=== PATIENT | female | born 1980 | race Caucasian/White ===

== ENCOUNTER 2016-08-07 17:10 | Inpatient (IN) | payer BC ==
[2016-08-07 18:08] LABS: URINE APPEARANCE SLCLOUDY; URINE BILIRUBIN NEGATIVE (NEGATIVE); URINE BLOOD NEGATIVE (NEGATIVE); URINE COLOR LTYELLOW; URINE GLUCOSE (UA) NEGATIVE (NEGATIVE); URINE KETONE NEGATIVE (NEGATIVE); URINE NITRITE NEGATIVE (NEGATIVE); URINE PROTEIN NEGATIVE (NEGATIVE); URINE UROBILINOGEN NEGATIVE E.U./dl (0.2-1.0)
[2016-08-07 18:11] LABS: URINE LEUK ESTERASE 3+ (NEGATIVE)
[2016-08-07 18:13] LABS: URINE BACTERIA FEW /hpf (NONE SEEN); URINE HYALINE CAST 1 /lpf; URINE MUCUS RARE; URINE RBC 7 /hpf (0-3); URINE WBC 62 /hpf (3-5)
[2016-08-07 21:12] LABS: BASOPHIL 0.4 % (0-2.0); EOSINOPHIL 0.7 % (0-4.5); MCHC 33.2 g/dl (32.0-36.0); MEAN CELL VOLUME 87.5 fl (80-96); NEUTROPHILS 72.7 % (42.8-82.8); PLATELET COUNT 197 K/MM3 (134-434); RDW 13.2 % (11.6-15.6); WHITE BLOOD COUNT 9.3 K/mm3 (4.0-10.0)
[2016-08-07 21:36] LABS: ALBUMIN 3.1 g/dl (3.4-5.0); ANION GAP 15 (8-16); BILIRUBIN,TOTAL 0.2 mg/dL (0.2-1.0); CALCIUM 8.3 mg/dL (8.5-10.1); CO2 22 mmol/L (21-32); CREATININE 0.6 mg/dL (0.55-1.02); GLUCOSE,RANDOM 94 mg/dL (74-106); SGOT/AST 17 U/L (15-37); SGPT/ALT 35 U/L (12-78)
[2016-08-07 21:37] LABS: ALK PHOS 37 U/L (45-117)
[2016-08-07] MEDS: SODIUM CHLORIDE 1,000 ML IV SCH (21:45)
[2016-08-07] MEDS ORDERED: ACETAMINOPHEN 325 MG TABLET (FP) PO PRN (22:33)
[2016-08-07 22:35] VITALS: BMI 23.5
[2016-08-07] MEDS ORDERED: cefTRIAXone 1 GM/50 ML BAG (PRE-DOCKED) IVPB SCH (22:45)
[2016-08-08] MEDS: SODIUM CHLORIDE 1,000 ML IV SCH (05:45)
[2016-08-08 09:53] VITALS: BP 93/48; PULSE 71; TEMP 98.1
--- NOTE | 2016-08-08 12:37 | HP ---
Past Medical History - Primary Care Physician PCP:: Tk Goncalves - Admission Chief Complaint: 36 yo P2032 with at EGA 20w3d admitted with c/o severe left back and flank pain. History of Present Illness: Patient described left back and flank pain x 2 days that became much worse. The pain started as constant but then became colicky. The patient denies fever, chills, nausea, vomiting, hematuria. She had a prior h/o IUFD at 20wks. 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: Alzheimer's, CVA, Dementia, Migraine, Multiple Sclerosis, Peripheral Neuropathy, Parkinson's, Seizure, Syncope, TIA, Vertigo, Other Cardiovascular: No: AFIB, Aneurysm, Aortic Insufficiency, Aortic Stenosis, CAD, CHF, Deep Vein Thrombosis, HTN, Hyperlipdemia, [place], Mitral Insufficiency, Mitral Stenosis, Murmur, Pulmonary Hypertension, Other Pulmonary: No: Asthma, Bronchitis, Cancer, COPD, O2 Dependent, Pneumonia, Previously Intubated, Pulmonary Embolus, Pulmonary Fibrosis, Sleep Apnea, Other Gastrointestinal: No: Ascites, Cancer, Constipation, Crohn's Disease, Diverticulitis, Diverticulosis, Esophageal Varices, Gastritis, GERD, GI Bleed, Hemorrhoids, Hiatal Hernia, Inflamatory Bowel Disease, Irritable Bowel Disease, Pancreatitis, Peptic Ulcer Disease, Ulcerative Colitis, Other Hepatobiliary: No: Cirrhosis, Cholelithiasis, Cholecystitis, Choledocholithiasis , Hepatitis A, Hepatitis B, Hepatitis C, Other Renal/: No: Renal Failure, Renal Inusuff, BPH, Cancer, Hematuria, Hemodialysis , Neurogenic Bladder, Renal Calculi, UTI, Other ...: 6 ...Para: 2 ( x 2) ...Term: 2 ...: 0 ...Spon : 3 (SAB x 2 in 1st trimester, D&E x 1 for IUFD at 20-21wks.) ...Induced : 0 ...Multiple Gestation: 0 ... Weeks Gestation by Dates: 20.3 ...EDC by Sono: 12/23/16 Heme/Onc: No: Anemia, B12 Deficiency, Bleeding Disorder, Cancer, Current Chemotherapy, Current Radiation Therapy, Hemochromatosis, Hypercoaguable State, Myeloproliferative Synd, Sickle Cell Disease, Sickle Cell Trait, Thrombocytopenia, Other Infectious Disease: No: AIDS, C-Diff, Herpes Zoster, HIV, MRSA, STD's, Tuberculosis, VREF, Other Psych: No: Addictions, Anxiety, Bipolar, Depression, Panic, Psychosis, Schizophrenia, Other Musculoskeletal: No: Bursitis, Chronic low back pain, Hemiparesis, Hemiplegia, Osteoarthritis, Paraplegia, Other Rheumatology: No: Fibromyalgia, Gout, Lupus, Rheumatoid Arthritis, Sarcoidosis, Vasculitis, Other ENT: No: Allergic Rhinitis, Sinusitis, Other Endocrine: No: London's Disease, Zoar's Disease, Diabetes Insipidus, Diabetes Mellitus, Hyperparathyroidism, Hyperthyroidism, Hypothyroidism, Osteopenia, SIADH, Other Dermatology: No: Basal Cell, Cellulitis, Eczema, Melanoma, Psoriasis, Squamous Cell, Other - Past Surgical History Hx Myomectomy: No Hx Transabdominal Cerclage: No Additional Surgical History: D&E x 1 - Smoking History Smoking history: Never smoked Have you smoked in the past 12 months: No - Alcohol/Substance Use Hx Alcohol Use: No History of Substance Use: reports: None - Social History Usual Living Arrangement: Yes: With Child ADL: Independent History of Recent Travel: No Home Medications - Allergies Allergies/Adverse Reactions: Allergies Allergy/AdvReac Type Severity Reaction Status Date / Time No Known Drug Allergies Allergy Verified 08/07/16 20:39 - Home Medications Home Medications: Ambulatory Orders Vit/Iron Fumarate/FA [ Tablet] 1 tab PO DAILY 08/07/16 Review of Systems Findings/Remarks: Well appearing. Pt states that her symptoms have significantly improved since admission. - Review of Systems Constitutional: reports: No Symptoms, Other (Patient was in a lot of pain on admission; now resolved.) Eyes: reports: No Symptoms HENT: reports: No Symptoms Neck: reports: No Symptoms Cardiovascular: reports: No Symptoms Respiratory: reports: No Symptoms Gastrointestinal: reports: No Symptoms Genitourinary: reports: Dysuria, Flank Pain, Other (symptoms now are resolved) Breasts: reports: No Symptoms Reported Musculoskeletal: reports: No Symptoms Integumentary: reports: No Symptoms Neurological: reports: No Symptoms Endocrine: reports: No Symptoms Hematology/Lymphatic: reports: No Symptoms Psychiatric: reports: No Symptoms Pain Intensity: 9 (now resolved) Physical Exam - Maternity Vital Signs: Vital Signs Temperature 98.1 F 08/08/16 09:51 Pulse Rate 71 08/08/16 09:51 Respiratory Rate 20 08/08/16 09:51 Blood Pressure 93/48 08/08/16 09:51 O2 Sat by Pulse Oximetry (%) Constitutional: Yes: Well Nourished, No Distress, Calm Eyes: Yes: WNL, Conjunctiva Clear HENT: Yes: WNL, Atraumatic, Normocephalic Neck: Yes: WNL, Supple, Trachea Midline Cardiovascular: Yes: WNL, Regular Rate and Rhythm Lungs: Clear to auscultation, Normal air movement Breast(s): Yes: WNL - Abdominal Exam/OB Fundal Height: 20 Number of Fetuses: Single Presentation: Vertex Contractions: No Heart Rate (range): 120 - Vaginal Exam/OB Vaginal Bleediing: No Speculum Exam: No Dilatation (cm): 0 Effacement (%): 0 Amniotic Membrane Status: Intact - Physical Exam Musculoskeletal: Yes: WNL Extremities: Yes: WNL Edema: No Integumentary: Yes: WNL Deep Tendon Reflex Grade: Normal +2 ...Motor Strength: WNL Psychiatric: Yes: WNL, Alert, Oriented - Labs Lab Results: CBC, BMP 08/07/16 21:00 08/07/16 21:00 Hemorrhage Risk Assessment - Risk Factors Medium Risk Factors: Yes: None High Risk Factors: Yes: None Risk Score: 1 Risk Level: Medium Risk Imaging - Results Ultrasound: Image Reviewed Assessment/Plan 39 yo P2 with at EGA 20w3d admitted with severe left CVAT and leukocytes in UA. The patient was also noted to have left renal stones. The clinical picture c/w nephrolithiasis with/without pyelonephritis. The patient was admitted yetserday and given IV abx. She is now asymptomatic. Plan to discharge to home. PO hydration encouraged. Plan to check the urine cx. precautions reviewed. Exam - Exam Vital Signs: Vital Signs (72 hours) 08/07/16 08/07/16 08/07/16 17:58 19:10 22:40 Temperature 97.9 F 98.0 F 97.6 F Pulse Rate 62 58 L Pulse Rate [ 81 Left] Respiratory 18 17 201 H Rate Blood Pressure 108/54 104/57 Blood Pressure 121/58 [Left] 08/08/16 08/08/16 08/08/16 02:05 05:33 09:51 Temperature 97.8 F 98.0 F 98.1 F Pulse Rate 64 70 71 Pulse Rate [ Left] Respiratory 20 20 20 Rate Blood Pressure 90/44 90/46 93/48 Blood Pressure [Left] Physical Exam - Physical Exam Gastrointestinal/Abdominal: Yes: Normal Bowel Sounds, Soft Back Exam: Yes: Normal Inspection (LEFT CVAT resolved since admission)
== END 2016-08-08 13:20 | disposition home or self-care (01) | DRG 781 ==
LOC: JDEL 17:10 → JLDR 20:30 → J3W 22:30
PROVIDERS: ADMIT Obstetrics & Gynecology; ATTEND Obstetrics & Gynecology
DX: O26.892 Other specified pregnancy related conditions, second trimester (principal); N20.0 Calculus of kidney; Z3A.20 20 weeks gestation of pregnancy
CPT/HCPCS: 36415; 76775-TC; 76815-TC; 76817-TC; 80053; 81003; 81015; 85025; 87086

== ENCOUNTER 2016-11-16 08:00 | Inpatient (IN) | payer BC ==
[2016-11-16] MEDS ORDERED: AMPICILLIN - 2 GM in SODIUM CHLORIDE 100 ML IVPB ONE (09:00)
[2016-11-16] MEDS ORDERED: BETAMET ACET/BETAMET NA PH 30 MG/5 ML VIAL IM SCH (09:00)
[2016-11-16 09:02] LABS: BASOPHIL 0.7 % (0-2.0); EOSINOPHIL 0.9 % (0-4.5); MCH 29.7 pg (25.7-33.7); MCHC 34.4 g/dl (32.0-36.0); MEAN CELL VOLUME 86.3 fl (80-96); MEAN PLT VOLUME 8.3 fl (7.5-11.1); NEUTROPHILS 79.3 % (42.8-82.8); PLATELET COUNT 166 K/MM3 (134-434); RDW 12.5 % (11.6-15.6); WHITE BLOOD COUNT 9.3 K/mm3 (4.0-10.0)
[2016-11-16 09:21] LABS: CALCIUM 8.2 mg/dL (8.5-10.1); CREATININE 0.6 mg/dL (0.55-1.02)
[2016-11-16 09:28] LABS: INR 0.93 (0.82-1.09); PROTHROMBIN TIME (PATIENT) 10.2 SEC (9.98-11.88)
[2016-11-16 09:31] LABS: ACTIVATED PTT 27.8 SECONDS (26.9-34.4)
[2016-11-16] MEDS ORDERED: ELECTROLYTE-148 SOLN 1,000 ML IV SCH (10:00)
--- NOTE | 2016-11-16 10:07 | HP ---
Past Medical History - Primary Care Physician PCP:: Tk Goncalves - Admission Chief Complaint: 36 yo P2122 with at EGA 34w5d and PPROM. 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: Alzheimer's, CVA, Dementia, Migraine, Multiple Sclerosis, Peripheral Neuropathy, Parkinson's, Seizure, Syncope, TIA, Vertigo, Other Cardiovascular: No: AFIB, Aneurysm, Aortic Insufficiency, Aortic Stenosis, CAD, CHF, Deep Vein Thrombosis, HTN, Hyperlipdemia, [place], Mitral Insufficiency, Mitral Stenosis, Murmur, Pulmonary Hypertension, Other Pulmonary: No: Asthma, Bronchitis, Cancer, COPD, O2 Dependent, Pneumonia, Previously Intubated, Pulmonary Embolus, Pulmonary Fibrosis, Sleep Apnea, Other Gastrointestinal: No: Ascites, Cancer, Constipation, Crohn's Disease, Diverticulitis, Diverticulosis, Esophageal Varices, Gastritis, GERD, GI Bleed, Hemorrhoids, Hiatal Hernia, Inflamatory Bowel Disease, Irritable Bowel Disease, Pancreatitis, Peptic Ulcer Disease, Ulcerative Colitis, Other Hepatobiliary: No: Cirrhosis, Cholelithiasis, Cholecystitis, Choledocholithiasis , Hepatitis A, Hepatitis B, Hepatitis C, Other Renal/: No: Renal Failure, Renal Inusuff, BPH, Cancer, Hematuria, Hemodialysis , Neurogenic Bladder, Renal Calculi, UTI, Other Reproductive: No: Ectopic , Endometriosis, Fibroids, PID, Polycystic Ovary Syndrome, Postmenopausal, Other ...: 6 ...Para: 2 ...Term: 2 ...: 1 ...Spon : 2 ... Weeks Gestation by Dates: 34.5 ...EDC by Sono: 12/23/16 Heme/Onc: No: Anemia, B12 Deficiency, Bleeding Disorder, Cancer, Current Chemotherapy, Current Radiation Therapy, Hemochromatosis, Hypercoaguable State, Myeloproliferative Synd, Sickle Cell Disease, Sickle Cell Trait, Thrombocytopenia, Other Infectious Disease: No: AIDS, C-Diff, Herpes Zoster, HIV, MRSA, STD's, Tuberculosis, VREF, Other Psych: No: Addictions, Anxiety, Bipolar, Depression, Panic, Psychosis, Schizophrenia, Other Musculoskeletal: No: Bursitis, Chronic low back pain, Hemiparesis, Hemiplegia, Osteoarthritis, Paraplegia, Other Rheumatology: No: Fibromyalgia, Gout, Lupus, Rheumatoid Arthritis, Sarcoidosis, Vasculitis, Other ENT: No: Allergic Rhinitis, Sinusitis, Other Endocrine: No: [place]'s Disease, Jemima's Disease, Diabetes Insipidus, Diabetes Mellitus, Hyperparathyroidism, Hyperthyroidism, Hypothyroidism, Osteopenia, SIADH, Other Dermatology: No: Basal Cell, Cellulitis, Eczema, Melanoma, Psoriasis, Squamous Cell, Other - Past Surgical History Hx Myomectomy: No Hx Transabdominal Cerclage: No Additional Surgical History: Abdominoplasty, breast augmentation - Smoking History Smoking history: Never smoked Have you smoked in the past 12 months: No - Alcohol/Substance Use Hx Alcohol Use: No History of Substance Use: reports: None - Social History Usual Living Arrangement: Yes: With Significant Other, With Child ADL: Independent Occupation: RN History of Recent Travel: No Home Medications - Allergies Allergies/Adverse Reactions: Allergies Allergy/AdvReac Type Severity Reaction Status Date / Time No Known Drug Allergies Allergy Verified 08/07/16 20:39 - Home Medications Home Medications: Ambulatory Orders Vit/Iron Fumarate/FA [ Tablet] 1 tab PO DAILY 08/07/16 Family Disease History - Family Disease History Family History: Unremarkable Review of Systems - Review of Systems Constitutional: reports: No Symptoms Eyes: reports: No Symptoms HENT: reports: No Symptoms Neck: reports: No Symptoms Cardiovascular: reports: No Symptoms Respiratory: reports: No Symptoms Gastrointestinal: reports: No Symptoms Genitourinary: reports: Other (leaking clear fluids) Breasts: reports: No Symptoms Reported Musculoskeletal: reports: No Symptoms Integumentary: reports: No Symptoms Neurological: reports: No Symptoms Endocrine: reports: No Symptoms Hematology/Lymphatic: reports: No Symptoms Psychiatric: reports: No Symptoms Pain Intensity: 0 Physical Exam - Maternity Vital Signs: Vital Signs Temperature 98.1 F 11/16/16 09:24 Pulse Rate 72 11/16/16 09:24 Respiratory Rate 20 11/16/16 09:24 Blood Pressure 103/61 11/16/16 09:24 O2 Sat by Pulse Oximetry (%) Constitutional: Yes: Well Nourished, No Distress, Calm Eyes: Yes: WNL, Conjunctiva Clear HENT: Yes: WNL, Atraumatic, Normocephalic Neck: Yes: WNL, Supple, Trachea Midline Cardiovascular: Yes: WNL, Regular Rate and Rhythm Lungs: Clear to auscultation, Normal air movement Breast(s): Yes: WNL - Abdominal Exam/OB Fundal Height: 34 Number of Fetuses: Single Presentation: Vertex Contractions: Yes Regularity: Irregular Intensity: Mild Monitor Mode: External Heart Rate (range): 130 Heart Rate Location: Midline Category: I Accelerations: Non-Uniform Decelerations: None - Vaginal Exam/OB Vaginal Bleediing: No Speculum Exam: No Amniotic Membrane Status: Leaking Nitrazine Test: Positive Amniotic Fluid: Yes: Clear Presentation: Vertex/Position Station: -3 - Physical Exam Musculoskeletal: Yes: WNL Extremities: Yes: WNL Edema: No Integumentary: Yes: WNL, Tattoos Deep Tendon Reflex Grade: Normal +2 Psychiatric: Yes: WNL, Alert, Oriented - Labs Lab Results: CBC, BMP 11/16/16 08:35 11/16/16 08:35 Hemorrhage Risk Assessment - Risk Factors Medium Risk Factors: Yes: None High Risk Factors: Yes: None Risk Score: 1 Risk Level: Medium Risk Imaging - Results Ultrasound: Report Reviewed, Other (vtx confirmed at bedside) Assessment/Plan 36 yo P2122 with at EGA 34w5d and PPROM. Fetus with category I tracing. Pt is not in labor. Plan ti give steroids and Ampicillin. Plan expectant mgt, anticipate spont labor.
[2016-11-16 10:11] VITALS: BMI 24.2
[2016-11-16] MEDS: AMPICILLIN - 1 GM in SODIUM CHLORIDE 100 ML IVPB SCH ×3 (13:00→21:00)
[2016-11-16] MEDS: DEXTROSE 5%-LACTATED RINGERS 1,000 ML IV SCH (17:00)
--- NOTE | 2016-11-16 20:27 | PN ---
Ante-Partal Exam - Subjective Subjective: No complaints Vital Signs: Vital Signs Temperature 98.2 F 11/16/16 18:00 Pulse Rate 82 11/16/16 20:00 Respiratory Rate 20 11/16/16 20:00 Blood Pressure 91/56 11/16/16 20:00 O2 Sat by Pulse Oximetry (%) Bleeding: No Headache: No Visual changes: No Right upper quadrant pain: No Pain (scale 1-10): 0 - Contractions Contractions: Yes Regularity: Irregular Intensity: Unaware Monitor Mode: External - Exam during Labor Heart Rate: 130 Variability: Moderate Heart Rate Location: Midline Category: I Monitor Accelerations: Present Monitor Decelerations: None Amniotic Membrane Status: Leaking Presentation: Vertex - Intrapartum Hemorrhage Risk Medium Risk Factors: None High Risk Factors: None Risk Score: 0 Risk Level: Low Risk - Assessment/Plan Assessment/Plan: 36 yo P2 with PPROM at 34w5d not in labor. Fetus with Category I tracing. Plan to augment labor with oxytocin. No evidence of chorioamnionitis. Plan of care d/ w pt who agreed.
[2016-11-16] MEDS ORDERED: OXYTOCIN 15 UNITS/ LR 250 ML 250 ML IVPB SCH (20:30)
[2016-11-16] MEDS ORDERED: CITRIC ACID/SODIUM CITRATE 30 ML UNIT-DOSE CUP PO ONE (22:15)
[2016-11-17] MEDS: AMPICILLIN - 1 GM in SODIUM CHLORIDE 100 ML IVPB SCH ×3 (01:10→09:00)
[2016-11-17] MEDS ORDERED: PROMETHAZINE HCL 25 MG/1 ML VIAL IVPB ONE ×2 (01:15→06:00)
[2016-11-17] MEDS ORDERED: BUTORPHANOL TARTRATE 1 MG/ML VIAL IVPB ONE ×2 (01:15→06:00)
[2016-11-17] MEDS ORDERED: BETAMET ACET/BETAMET NA PH 30 MG/5 ML VIAL IM ONE (06:45)
--- NOTE | 2016-11-17 06:56 | PN ---
Ante-Partal Exam - Subjective Subjective: Pt c/o pain with contractions Vital Signs: Vital Signs Temperature 97.9 F 11/17/16 06:00 Pulse Rate 81 11/17/16 06:00 Respiratory Rate 20 11/17/16 06:00 Blood Pressure 92/63 11/17/16 06:00 O2 Sat by Pulse Oximetry (%) Bleeding: No Headache: No Visual changes: No Right upper quadrant pain: No Pain (scale 1-10): 7 - Contractions Contractions: Yes Regularity: Regular (3-5min) Intensity: Moderate Monitor Mode: External - Exam during Labor Heart Rate: 135 Variability: Moderate Heart Rate Location: Midline Category: II Monitor Accelerations: Present Monitor Decelerations: Variable (occasional) Exam: Vaginal Dilatation (cm): 3 Effacement (%): 90 Amniotic Membrane Status: Leaking Amniotic Fluid: Clear Presentation: Vertex Station: 0 Remarks: IUPC catheter inserted for AMNIOINFUSION to start - Intrapartum Hemorrhage Risk Medium Risk Factors: None High Risk Factors: None Risk Score: 0 Risk Level: Low Risk - Assessment/Plan Assessment/Plan: IUP at 34w5d and PPROM, undergoing labor induction. Pitocin at 1mU Fetus with Category II tracing with occasional variable decels. IUPC place and will start amnioinfusion. Labor is progressing in latent phase. No s/sx of chorio. Continue abx. Plan to monitor progress and status/tracing. Anticipate
[2016-11-17] MEDS ORDERED: FENTANYL/BUPIVACAINE/NS/PF - PCEA - 50 ML DISP.SYRIN EP SCH (09:45)
[2016-11-17] MEDS: OXYTOCIN 20 UNITS in 0.9% NS 1,000 ML IV SCH ×2 (10:15→20:04)
[2016-11-17 11:01] LABS: ARTERIAL BLD GAS O2 SATURATION 48.5 % (90-98.9); ARTERIAL BLOOD GAS BASE EXCESS -2.1 meq/l (-2-2); ARTERIAL BLOOD GAS HCO3 24.4 meq/L (22-26); ARTERIAL BLOOD GAS pH 7.31 (7.35-7.45)
[2016-11-17 11:03] LABS: ARTERIAL BLOOD GAS BASE EXCESS -2.3 meq/l (-2-2); ARTERIAL BLOOD GAS HCO3 22.8 meq/L (22-26); ARTERIAL BLOOD GAS pH 7.35 (7.35-7.45)
[2016-11-17 11:04] LABS: LPM/O2% 21%; PT. ON O2? NO; TYPE OF O2 ROOM AIR
[2016-11-17 11:05] LABS: ARTERIAL BLOOD GAS PO2 25.9 mmHg (80-100)
[2016-11-17 11:05] LABS: LPM/O2% 21%; PT. ON O2? NO; TYPE OF O2 ROOM AIR
[2016-11-17 11:06] LABS: ARTERIAL BLOOD GAS PO2 31.3 mmHg (80-100)
[2016-11-17] MEDS ORDERED: BISACODYL 10 MG SUPP.RECT RC PRN (16:51)
[2016-11-17] MEDS ORDERED: BENZOCAINE 28 GM HEMORRHOIDAL OINTMENT TP PRN (16:51)
[2016-11-17] MEDS ORDERED: BENZOCAINE 20% 57 GM BOTTLE TP PRN (16:51)
[2016-11-17] MEDS ORDERED: METHYLERGONOVINE MALEATE 0.2 MG/1 ML AMP IM PRN (16:51)
[2016-11-17] MEDS ORDERED: WITCH HAZEL 50% (TUCKS) 40 PAD/JAR PAD TP PRN (16:51)
[2016-11-17] MEDS ORDERED: ACETAMINOPHEN 325 MG TABLET (FP) PO PRN (16:51)
--- NOTE | 2016-11-17 16:57 | PN ---
Delivery - Delivery Vaginal Delivery: No Problems, Spontaneous Type of Anesthesia: Epidural Episiotomy/Laceration: None EBL (cc): 300 Delivery, Single - Stages of Labor Date 1st Stage Initiatied: 11/17/16 Time 1st Stage Initiated: 01:00 Date 2nd Stage Initiated: 11/17/16 Time 2nd Stage Initiated: 09:50 Date of Delivery: 11/17/16 Time of Delivery: 10:10 Time Placenta Delivered: 10:15 Placenta: Yes: Spontaneous, Normal Configuration - Condition of Infant Skilled Nursing Facilities Professional/Supervisor Shuttle Preparation Present: Yes Name: Devi Castro Gender: Female Weight: 2.296 kg Position: Left, OA Total Hours ROM (Hrs/Mins): 26/55 - 1 Minute Total Score: 9 5 Minutes Total Score: 9 - Feeding Plan Initial Plan: Exclusive throughout hospitalization Benefits of Exclusively reinforced: Yes
[2016-11-17] MEDS: DEXTROSE 5%-LACTATED RINGERS 1,000 ML IV SCH (20:04)
[2016-11-17] MEDS: IBUPROFEN 600 MG TABLET (FP) PO PRN (21:26)
[2016-11-18] MEDS: IBUPROFEN 600 MG TABLET (FP) PO PRN ×3 (05:36→21:10)
[2016-11-18 08:50] LABS: BASOPHIL 0.1 % (0-2.0); EOSINOPHIL 0.2 % (0-4.5); MCH 29.3 pg (25.7-33.7); MCHC 33.4 g/dl (32.0-36.0); MEAN CELL VOLUME 87.5 fl (80-96); NEUTROPHILS 83.4 % (42.8-82.8); PLATELET COUNT 179 K/MM3 (134-434); RDW 12.9 % (11.6-15.6); WHITE BLOOD COUNT 15.9 K/mm3 (4.0-10.0)
[2016-11-18] MEDS: PRENATAL VITAMINS W/ FOLIC ACID TABLET (FP) PO SCH (09:44)
[2016-11-18] MEDS ORDERED: DIPHTH,PERTUSS(ACELL),TET 0.5 ML DISP.SYRIN IM ONE (13:00)
[2016-11-18] MEDS ORDERED: SENNOSIDES/DOCUSATE COMBO (SENNA PLUS) TABLET (UD) PO PRN (22:00)
--- NOTE | 2016-11-19 05:29 | DS ---
Physical Exam-REFUSE DRIVER Vital Signs: Vital Signs Temperature 97.7 F 11/18/16 22:00 Pulse Rate 64 11/18/16 22:00 Respiratory Rate 18 11/18/16 22:00 Blood Pressure 107/62 11/18/16 22:00 O2 Sat by Pulse Oximetry (%) 100 11/17/16 09:50 Constitutional: Yes: Well Nourished, No Distress, Calm Eyes: Yes: WNL, Conjunctiva Clear, EOM Intact HENT: Yes: WNL, Atraumatic, Normocephalic Neck: Yes: WNL, Supple, Trachea Midline Cardiovascular: Yes: WNL, Regular Rate and Rhythm Respiratory: Yes: WNL, Regular, CTA Bilaterally Gastrointestinal: Yes: WNL ...Rectal Exam: Yes: WNL Renal/: Yes: WNL ....Post : Yes: Uterus firm, Uterus non-tender, Slight lochia rubra Breast(s): Yes: WNL Musculoskeletal: Yes: WNL Extremities: Yes: WNL Edema: No Integumentary: Yes: WNL Neurological: Yes: WNL, Alert, Oriented ...Motor Strength: WNL Psychiatric: Yes: WNL, Alert, Oriented Labs: CBC, BMP 11/18/16 07:05 11/16/16 08:35 Delivery - Delivery Vaginal Delivery: No Problems, Spontaneous Type of Anesthesia: Epidural Episiotomy/Laceration: None EBL (cc): 300 Delivery, Single - Stages of Labor Date 1st Stage Initiatied: 11/17/16 Time 1st Stage Initiated: 01:00 Date 2nd Stage Initiated: 11/17/16 Time 2nd Stage Initiated: 09:50 Date of Delivery: 11/17/16 Time of Delivery: 10:10 Time Placenta Delivered: 10:15 Placenta: Yes: Spontaneous, Normal Configuration - Condition of Tractor Technician/Sales Engineer Account Manager Present: Yes Name: Devi Castro Gender: Female Weight: 5 lb 1 oz Position: Left, OA Total Hours ROM (Hrs/Mins): 26/55 - 1 Minute Total Score: 9 5 Minutes Total Score: 9 - [place] Feeding Plan Initial Plan: Exclusive throughout hospitalization Benefits of Exclusively reinforced: Yes Discharge Summary Reason For Visit: LABOR prom Procedures: Principal: Condition: Good - Instructions Diet, Activity, Other Instructions: regular diet, follow up office 4 weeks Referrals: Tk Goncalves MD [Staff Physician] - Disposition: HOME - Home Medications Comprehensive Discharge Medication List: Ambulatory Orders Vit/Iron Fumarate/FA [ Tablet] 1 tab PO DAILY 08/07/16 Ibuprofen [Motrin -] 600 mg PO QID #28 tablet 11/18/16
[2016-11-19] MEDS: IBUPROFEN 600 MG TABLET (FP) PO PRN (07:55)
[2016-11-19] MEDS: PRENATAL VITAMINS W/ FOLIC ACID TABLET (FP) PO SCH (10:38)
[2016-11-19 11:05] VITALS: BP 114/74; PULSE 61; TEMP 98
--- NOTE | 2016-11-25 16:32 | PATH ---
Surgical Pathology Report Patient Name: MARIA L ARTHUR Med. Rec. #: [id number] /Age/Gender: 1980 (Age: 36) / F Account: [id number] Location: [facility] OBS/SR. STRATEGIC SOURCING MANAGER Taken: 11/17/2016 Received: 11/18/2016 Reported: 11/25/2016 Physicians: Tk Goncalves M.D. Specimen(s) Received PLACENTA Clinical History 34.6 weeks, , x3 (2 full-term, one 20 week miscarriage) Final Diagnosis PLACENTA, DELIVERY: FOCALLY DISRUPTED SMALL (<400 GM) THIRD TRIMESTER PLACENTA WITH MARKED ACUTE BASAL DECIDUITIS WITH FOCI OF NECROSIS, MODERATE PREVILLOUS, PERIVILLOUS, AND PRECHORIONIC FIBRIN DEPOSITION, THREE VESSEL UMBILICAL CORD, AND PLACENTAL MEMBRANES WITH EARLY ACUTE CHORIOAMNIONITIS AND FOCAL ACUTE INFLAMMATION OF CHORIONIC PLATE WITH FOCAL CHORIONIC VASCULITIS. Electronically Signed Marshall Bernstein M.D. Gross Description The specimen is received fresh, labeled "placenta" and is a 331 gram, 17.0 x 11.0 x 2.2 cm placenta with attached membranes and umbilical cord. The attached membranes are phan, translucent with focal opacities and insert marginally. The umbilical cord measures 27 cm in length and averages 1.2 cm in diameter. The cord inserts eccentrically, 2 cm to the nearest margin. No true knots or strictures are identified. Cut surface of the umbilical cord reveals 3 vessels. The surface is sousa-blue with fibrin deposition and appropriate caliber vessels. The maternal surface is red-brown with focal defects. Sectioning reveals red-brown, spongy parenchyma. No discrete lesions are identified. Paid Search Manager sections are submitted in three cassettes as follows: 1- membrane rolls and umbilical cord; 2-3- full thickness sections of placenta. /11/24/2016 [facility]11/24/2016
== END 2016-11-19 14:50 | disposition home or self-care (01) | DRG 775 ==
LOC: JDEL 08:00 → JLDR 08:30 → J3W 11-17 11:32
PROVIDERS: ADMIT Obstetrics & Gynecology; ATTEND Obstetrics & Gynecology
PROC: 10E0XZZ Delivery of Products of Conception, External Approach (ICD-10-PCS; principal; 2016-11-17)
PROC: 3E0334Z Introduction of Serum, Toxoid and Vaccine into Peripheral Vein, Percutaneous Approach (ICD-10-PCS; 2016-11-17)
DX: O60.14X0 Preterm labor third trimester with preterm delivery third trimester, not applicable or unspecified (principal); O09.523 Supervision of elderly multigravida, third trimester; O42.913 Preterm premature rupture of membranes, unspecified as to length of time between rupture and onset of labor, third trimester; Z3A.34 34 weeks gestation of pregnancy; O26.893 Other specified pregnancy related conditions, third trimester; Z67.91 Unspecified blood type, Rh negative; Z37.0 Single live birth
CPT/HCPCS: 36415; 36600; 59409; 80048; 82803; 85025; 85461; 85610; 85730; 86593; 86850; 86870; 86900; 86901; 86902; 86999; 88307-TC; 90715; 96372

== ENCOUNTER 2020-10-05 08:10 | Inpatient (IN) | payer OTHER ==
[2020-10-05] MEDS: DEXTROSE 5%-LACTATED RINGERS 1,000 ML IV SCH ×2 (08:45→16:20)
[2020-10-05 09:39] LABS: BASO % 0.6 % (0-2.0); EOS % 0.5 % (0-4.5); HEMATOCRIT 36.3 % (32.4-45.2); HEMOGLOBIN 12.4 GM/dL (10.7-15.3); LYMPH % 16.3 % (8-40); MCH 29.3 pg (25.7-33.7); MCHC 34.2 g/dl (32.0-36.0); MEAN CELL VOLUME 85.7 fl (80-96); MEAN PLT VOLUME 8.4 fl (7.5-11.1); MONO % 7.4 % (3.8-10.2); NEUT % 75.2 % (42.8-82.8); PLATELET COUNT 161 K/MM3 (134-434); RBC 4.24 M/mm3 (3.60-5.2); RDW 13.1 % (11.6-15.6); WHITE BLOOD COUNT 7.5 K/mm3 (4.0-10.0)
[2020-10-05 09:41] VITALS: BMI 28.8
[2020-10-05 09:52] LABS: INR 0.94 (0.83-1.09); PROTHROMBIN TIME (PATIENT) 11.6 SEC (9.7-13.0)
[2020-10-05 09:55] LABS: ACTIVATED PTT 25.4 SECONDS (25.2-36.5)
[2020-10-05 10:07] LABS: POTASSIUM 3.9 mmol/L (3.5-5.1)
[2020-10-05 10:08] LABS: CALCIUM 8.6 mg/dL (8.5-10.1)
[2020-10-05 10:12] LABS: CREATININE 0.6 mg/dL (0.55-1.3)
[2020-10-05] MEDS ORDERED: OXYTOCIN 30 UNITS in 0.9% NS 30 UNIT/500 ML INFUS.BAG IVPB ONE (11:17)
[2020-10-05] MEDS: OXYTOCIN 30 UNITS in 0.9% NS 30 UNIT/500 ML INFUS.BAG IVPB SCH (11:30)
[2020-10-05] MEDS ORDERED: ACETAMINOPHEN 325 MG TABLET (FP) ONE (17:51)
[2020-10-05] MEDS ORDERED: FENTANYL/BUPIVACAINE/NS/PF - PCEA - 50 ML DISP.SYRIN EP ONE ×2 (18:42→23:13)
[2020-10-05] MEDS ORDERED: PCA PUMP NR ONE (18:42)
[2020-10-05] MEDS: FENTANYL/BUPIVACAINE/NS/PF - PCEA - 50 ML DISP.SYRIN EP SCH (19:10)
[2020-10-05] MEDS ORDERED: NALOXONE HCL 0.4 MG/ML VIAL IVPUSH PRN (19:50)
[2020-10-05] MEDS ORDERED: ePHEDrine SULFATE 50 MG/1 ML AMPULE IVPUSH ONE (20:35)
[2020-10-06] MEDS ORDERED: BUPIVACAINE HCL/PF 0.25% (2.5MG/ML) 10 ML VIAL ONE (00:33)
[2020-10-06] MEDS ORDERED: ePHEDrine SULFATE 50 MG/1 ML AMPULE ONE (00:35)
[2020-10-06] MEDS ORDERED: SODIUM CHLORIDE 0.9% P/F 10 ML VIAL IJ ONE (00:35)
[2020-10-06] MEDS ORDERED: OXYTOCIN 20 UNITS in 0.9% NS 20 UNIT/1,000 ML INFUS.BAG IV ONE (01:11)
[2020-10-06] MEDS: IBUPROFEN 600 MG TABLET (FP) PO PRN ×4 (04:58→21:39)
[2020-10-06] MEDS: ACETAMINOPHEN 325 MG TABLET (FP) PO PRN ×3 (04:58→21:38)
[2020-10-06] MEDS ORDERED: BENZOCAINE 20% 57 GM BOTTLE TP PRN (09:16)
[2020-10-06] MEDS ORDERED: METHYLERGONOVINE MALEATE 0.2 MG/1 ML AMP IM PRN (09:16)
[2020-10-06] MEDS ORDERED: IBUPROFEN 600 MG TABLET (FP) PO PRN (09:16)
[2020-10-06] MEDS ORDERED: BISACODYL 10 MG SUPP.RECT RC PRN (09:16)
[2020-10-06] MEDS ORDERED: BENZOCAINE 28 GM HEMORRHOIDAL OINTMENT TP PRN (09:16)
[2020-10-06] MEDS ORDERED: WITCH HAZEL 50% (TUCKS) 40 PAD/JAR PAD TP PRN (09:16)
[2020-10-06] MEDS ORDERED: ACETAMINOPHEN 325 MG TABLET (FP) PO PRN (09:16)
[2020-10-06] MEDS ORDERED: OXYTOCIN 20 UNITS in 0.9% NS 20 UNIT/1,000 ML INFUS.BAG IV SCH (09:30)
[2020-10-06] MEDS: PRENATAL VITAMINS W/ FOLIC ACID TABLET (FP) PO SCH (10:00)
[2020-10-06] MEDS: OXYTOCIN 30 UNITS in 0.9% NS 30 UNIT/500 ML INFUS.BAG IVPB SCH (11:45)
[2020-10-06] MEDS: DEXTROSE 5%-LACTATED RINGERS 1,000 ML IV SCH (11:45)
[2020-10-06] MEDS: FENTANYL/BUPIVACAINE/NS/PF - PCEA - 50 ML DISP.SYRIN EP SCH (20:37)
[2020-10-07 01:29] VITALS: PULSE 71; TEMP 97.7
[2020-10-07 09:39] LABS: BASO % 0.7 % (0-2.0); EOS % 0.9 % (0-4.5); HEMATOCRIT 34.1 % (32.4-45.2); HEMOGLOBIN 11.9 GM/dL (10.7-15.3); MCH 29.7 pg (25.7-33.7); MCHC 34.7 g/dl (32.0-36.0); MEAN CELL VOLUME 85.4 fl (80-96); MEAN PLT VOLUME 8.8 fl (7.5-11.1); MONO % 5.5 % (3.8-10.2); NEUT % 73.9 % (42.8-82.8); PLATELET COUNT 187 K/MM3 (134-434); RDW 13.5 % (11.6-15.6); WHITE BLOOD COUNT 9.2 K/mm3 (4.0-10.0)
[2020-10-07] MEDS: IBUPROFEN 600 MG TABLET (FP) PO PRN (09:42)
[2020-10-07] MEDS: PRENATAL VITAMINS W/ FOLIC ACID TABLET (FP) PO SCH (09:42)
[2020-10-07] MEDS: ACETAMINOPHEN 325 MG TABLET (FP) PO PRN (09:43)
[2020-10-07 10:09] VITALS: BP 117/72
[2020-10-07] MEDS ORDERED: SENNOSIDES/DOCUSATE COMBO (SENNA PLUS) TABLET (UD) PO PRN (22:00)
== END 2020-10-07 12:05 | disposition home or self-care (01) | DRG 806 ==
LOC: JLDR 08:10 → J3W 10-06 03:53
PROVIDERS: ADMIT Obstetrics & Gynecology; ATTEND Obstetrics & Gynecology
PROC: 10907ZC Drainage of Amniotic Fluid, Therapeutic from Products of Conception, Via Natural or Artificial Opening (ICD-10-PCS; 2020-10-05)
PROC: 3E033VJ Introduction of Other Hormone into Peripheral Vein, Percutaneous Approach (ICD-10-PCS; 2020-10-05)
PROC: 10E0XZZ Delivery of Products of Conception, External Approach (ICD-10-PCS; principal; 2020-10-06)
PROC: 0KQM0ZZ Repair Perineum Muscle, Open Approach (ICD-10-PCS; 2020-10-06)
PROC: 0W8NXZZ Division of Female Perineum, External Approach (ICD-10-PCS; 2020-10-06)
DX: O99.12 Other diseases of the blood and blood-forming organs and certain disorders involving the immune mechanism complicating childbirth (principal); D68.61 Antiphospholipid syndrome; Z37.0 Single live birth; O99.284 Endocrine, nutritional and metabolic diseases complicating childbirth; E06.3 Autoimmune thyroiditis; O70.1 Second degree perineal laceration during delivery; Z3A.39 39 weeks gestation of pregnancy
CPT/HCPCS: 36415; 59409; 80048; 85025; 85461; 85610; 85730; 86780; 86850; 86900; 86901